=== PATIENT | male | born 1955 | race Caucasian/White ===

== ENCOUNTER 2016-11-18 20:31 | Emergency (ER) | payer MEDICARE, OTHER ==
[~2016-11-18 20:31] MED LIST: *UNABLE1; *UNABLE3; AMB10 PO; AMIT25 PO; ATV1 PO; B COMPLEX-C PO; C5 PO; CALTRA600D PO; CALTRAT600 PO; CEFT5 PO; CENTRUM PO; CENTRUM TAB1 TAB PO; CITRUCELSF; CLARIT10 PO; COMBIVENT INH; COMBIVENT RESPIM4 GM INH; COUMADIN7.5 MG PO; D100 PO; DIAZEPAM PO; DUONEB INH; ENDOCET1 TA3 PO; FERROUS SULF325 M1 PO; FIBER PO; FISH OIL PO; FISH-EPA1000 MG PO; FLEX PO; FLORASTOR250 MG PO; FLUCON2 PO; FORTICAL200 MG/ACT NAS; FOSAMAX70 MG PO; GABAPENTIN PO; HABIT14 TOP; HAIR,SKIN,NAILS VIT PO; IRON OTC PO; IRON325 MG PO; KEPPRA PO; KEPPRA XR PO; KEPPRA1000 MG PO; KEPPRA500 PO; KEPPRA750 MG PO; KLONO1 PO; KLONO5 PO; LEVAQUIN750 MG PO; LORTAB10 PO; MIACALCIN NAS; MOBIC7.5 PO; MODAFINIL PO; MULTIVIT/MIN PO; NASONEX NAS; NEBULIZER SOLN INH; NEO-OINT15 TOP; NEUR100 PO; NEUR300 PO; NEUR400 PO; NEUR600 PO; NEXIUM40 PO; NORCO1 TAB PO; NUIRONCAP PO; OXYCON20 PO; OXYCON40 PO; OXYCONTIN PO; OXYCONTIN60 MG PO; P20 PO; PCET PO; PERCOCET PO; PERCOCET1 TA4 PO; PHENYTEK200 MG PO; POTASSIUM OTC PO; POTASSIUM PO; PR25 PO; PRIN10 PO; PROAIR HFA INH; PROMETHAZINE PO; PROTONIX PO; PROVENTSOL INH; PROVIGIL PO; PROVIGIL2 PO; REFRESH OPH; ROXICODONE15 MG PO; SUPER B COMP PO; T PO; TEARS NATURA OPH; V5 PO; VALIUM10 MG PO; VITAMIN B COMP1 EAC1 PO; VITAMIN B-12 PO; VITAMIN B-121000 MC1 SL; VITAMIN D PO; VITAMIN D31000 UNIT PO; VITAMIN E PO; VITAMIN E400 UNI5 PO; WELLSR150 PO; ZYP5 PO; [UNRECOGNIZED DRUG - OTHER]
[2016-11-18 20:39] LABS: BASOPHILS 0.4 %; BASOPHILS ABSOLUTE 0.04 10/3/uL (0.0-0.16); EOSINOPHILS 3.1 %; EOSINOPHILS ABSOLUTE 0.29 10/3/uL (0.0-0.53); ER CBC TAT 0 Hrs 10 Mins; HEMATOCRIT 33.4 % (40.0-51.0); HEMOGLOBIN 10.6 g/dL (13.6-17.8); IMMATURE GRANULOCYTES 1.3 %; IMMATURE GRANULOCYTES ABSOLUTE 0.12 10/3/uL (0.0-0.11); LYMPHOCYTES 23.4 %; LYMPHOCYTES ABSOLUTE 2.21 10/3/uL (0.67-4.30); MEAN CORPUS HGB CONC 31.7 g/dL (32.0-36.0); MEAN CORPUSCULAR HEMOGLOB 27.2 pg (26.0-34.0); MEAN CORPUSCULAR VOLUME 85.6 fL (80-100); MEAN PLATELET VOLUME 10.5 fL (9.2-13.0); MONOCYTES 9.4 %; MONOCYTES ABSOLUTE 0.89 10/3/uL (0.21-1.20); NEUTROPHILS 62.4 %; NEUTROPHILS ABSOLUTE 5.89 10/3/uL (2.02-8.40); PLATELET COUNT 223 10/3/uL (150-400); WHITE BLOOD CELLS 9.4 10/3/uL (4.5-10.5)
[2016-11-18 20:40] LABS: MANUAL DIFF NO %
[2016-11-18 21:09] LABS: PLATELET ESTIMATE ADQ (ADEQUATE); RBC MORPHOLOGY NORM (NORMAL)
[2016-11-18 21:43] LABS: A/G RATIO 0.8 (0.7-1.9); ALBUMIN 3.1 G/DL (3.5-5.0); ALKALINE PHOSPHATASE 95 U/L (45-117); BUN (BLOOD UREA NITROGEN) 13 MG/DL (6-23); CALCIUM, SERUM 7.9 MG/DL (8.5-10.4); CHLORIDE, SERUM 106 MMOL/L (96-112); CO2 (CARBON DIOXIDE) 28 MMOL/L (24-34); CPK 134 U/L (0-200); CREATININE 0.72 MG/DL (0.70-1.30); GFR AFRICAN AMERICAN 115 ML/MIN (>=60); GFR NON AFRICAN AMERICAN 99 ML/MIN (>=60); GLOBULIN 4.1 G/DL (2.5-4.1); GLUCOSE, SERUM 126 MG/DL (60-99); POTASSIUM, SERUM 3.8 MMOL/L (3.5-5.3); SGPT(ALT) 19 U/L (5-65); SODIUM, SERUM 143 MMOL/L (135-148); TOTAL BILIRUBIN 0.2 MG/DL (0-1.2); TOTAL PROTEIN 7.2 G/DL (6.0-8.5)
[2016-11-18 21:44] LABS: SGOT(AST) 19 U/L (5-40)
== END 2016-11-18 23:51 | disposition home or self-care (01) ==
LOC: ER 20:31
PROVIDERS: Emergency Medicine
DX: R25.2 Cramp and spasm (principal); Z87.01 Personal history of pneumonia (recurrent); J44.9 Chronic obstructive pulmonary disease, unspecified
CPT/HCPCS: 80053; 82550; 83735; 85025; 96374; 96375; 99284; J1170; J2405; J3360

== ENCOUNTER 2016-12-16 20:31 | Emergency (ER) | payer MEDICARE, OTHER ==
[2016-12-16 20:52] LABS: ASCORBIC ACID (UR NOT ORDER) NEG (NEG); BILIRUBIN, URINE NEGATIVE (NEG); ER URINALYSIS TAT 0 Hrs 11 Mins; KETONE, URINE NEGATIVE (NEG); LEUKOCYTE ESTERASE(NOT OR NEG (NEG); NITRITE (URINE) NEG (NEG); WBC (NOT ORDERED) (RFLEX) < 1 (0-5)
== END 2016-12-16 22:30 | disposition home or self-care (01) ==
LOC: ER 20:31
PROVIDERS: Nurse Practitioner Acute Care
DX: M25.511 Pain in right shoulder (principal); M25.551 Pain in right hip; J44.9 Chronic obstructive pulmonary disease, unspecified; I10 Essential (primary) hypertension; D64.9 Anemia, unspecified; Z87.01 Personal history of pneumonia (recurrent); Z87.891 Personal history of nicotine dependence; Z86.718 Personal history of other venous thrombosis and embolism; Z88.1 Allergy status to other antibiotic agents; Z88.0 Allergy status to penicillin; Z88.6 Allergy status to analgesic agent; Z88.7 Allergy status to serum and vaccine; Z88.8 Allergy status to other drugs, medicaments and biological substances; Z91.040 Latex allergy status; Z79.899 Other long term (current) drug therapy
CPT/HCPCS: 70450; 72125; 73030-RT; 73502-RT; 81001; 93005; 99285; A9270-GY

== ENCOUNTER 2017-04-16 10:31 | Inpatient (IN) | payer MEDICARE, OTHER ==
[~2017-04-16] VITALS: Ht 175.3 cm; Wt 93.6 kg
[2017-04-16 11:20] LABS: BASOPHILS 0.1 %; BASOPHILS ABSOLUTE 0.02 10/3/uL (0.0-0.16); EOSINOPHILS 1.2 %; EOSINOPHILS ABSOLUTE 0.23 10/3/uL (0.0-0.53); IMMATURE GRANULOCYTES 0.8 %; IMMATURE GRANULOCYTES ABSOLUTE 0.15 10/3/uL (0.0-0.11); LYMPHOCYTES 9.4 %; LYMPHOCYTES ABSOLUTE 1.83 10/3/uL (0.67-4.30); MEAN CORPUS HGB CONC 31.5 g/dL (32.0-36.0); MEAN CORPUSCULAR HEMOGLOB 26.8 pg (26.0-34.0); MEAN PLATELET VOLUME 9.5 fL (9.2-13.0); MONOCYTES 11.2 %; MONOCYTES ABSOLUTE 2.18 10/3/uL (0.21-1.20); NEUTROPHILS 77.3 %; NEUTROPHILS ABSOLUTE 15.03 10/3/uL (2.02-8.40); PLATELET COUNT 184 10/3/uL (150-400); RBC DISTRIBUTION WIDTH 17.8 % (12.0-16.0)
[2017-04-16 11:24] LABS: ER CBC TAT 0 Hrs 10 Mins; HEMATOCRIT 26.7 % (40.0-51.0); HEMOGLOBIN 8.4 g/dL (13.6-17.8); MANUAL DIFF NO %; RED CELL COUNT 3.14 10/6/uL (4.7-6.1); WHITE BLOOD CELLS 19.4 10/3/uL (4.5-10.5)
[2017-04-16 11:26] LABS: INTERNATIONAL NORMAL RATI 1.3 UNITS (-); PROTIME (NOT ORD) 15.9 SEC (12.0-14.5)
[2017-04-16 11:43] LABS: ALBUMIN 2.9 G/DL (3.5-5.0); ALKALINE PHOSPHATASE 77 U/L (45-117); CALCIUM, SERUM 8.7 MG/DL (8.5-10.4); CO2 (CARBON DIOXIDE) 25 MMOL/L (24-34); POTASSIUM, SERUM 4.4 MMOL/L (3.5-5.3); SGOT(AST) 27 U/L (5-40); SGPT(ALT) 19 U/L (5-65); TOTAL BILIRUBIN 0.4 MG/DL (0-1.2); TOTAL PROTEIN 7.5 G/DL (6.0-8.5)
[2017-04-16 11:45] LABS: A/G RATIO 0.6 (0.7-1.9); BUN (BLOOD UREA NITROGEN) 42 MG/DL (6-23); CHLORIDE, SERUM 97 MMOL/L (96-112); CREATININE 1.89 MG/DL (0.70-1.30); GFR AFRICAN AMERICAN 43 ML/MIN (>=60); GFR NON AFRICAN AMERICAN 37 ML/MIN (>=60); GLOBULIN 4.6 G/DL (2.5-4.1); GLUCOSE, SERUM 123 MG/DL (60-99); SODIUM, SERUM 131 MMOL/L (135-148)
[2017-04-16 11:47] LABS: TROPONIN I 0.05 NG/ML (<0.05)
[2017-04-16 11:53] LABS: ASCORBIC ACID (UR NOT ORDER) NEG (NEG); BILIRUBIN, URINE NEGATIVE (NEG); ER URINALYSIS TAT 0 Hrs 10 Mins; KETONE, URINE NEGATIVE (NEG); LEUKOCYTE ESTERASE(NOT OR NEG (NEG); NITRITE (URINE) NEG (NEG); WBC (NOT ORDERED) (RFLEX) 1 (0-5)
[2017-04-16] MEDS ORDERED: IVIGLIQ IV (11:56)
[2017-04-16] MEDS ORDERED: NEUR600 PO (11:57)
[2017-04-16] MEDS ORDERED: V5 PO (11:57)
[2017-04-16] MEDS ORDERED: WELLSR150 PO (11:57)
[2017-04-16] MEDS ORDERED: NORCO1 TAB PO (11:58)
[2017-04-16] MEDS ORDERED: ZYP5 PO (11:58)
[2017-04-16] MEDS ORDERED: KEPPRA500 PO (11:58)
[2017-04-16] MEDS ORDERED: REST15 PO (11:59)
[2017-04-16] MEDS ORDERED: PROTONIX PO (11:59)
[2017-04-16] MEDS ORDERED: ZOFRAN4 PO (11:59)
[2017-04-16] MEDS ORDERED: COMBIVENT RESPIM4 GM INH (12:00)
[2017-04-16] MEDS ORDERED: ALBUTEROL0.083 % INH (12:00)
[2017-04-16] MEDS ORDERED: VITE PO (12:00)
[2017-04-16] MEDS ORDERED: VITAMIN D1000 UNI1 PO (12:00)
[2017-04-16] MEDS ORDERED: FLONASE NAS (12:01)
[2017-04-16 16:26] LABS: LACTATE 1.2 MMOL/L (0.3-2.4)
[2017-04-18 07:19] LABS: BASOPHILS 0.1 %; BASOPHILS ABSOLUTE 0.02 10/3/uL (0.0-0.16); EOSINOPHILS 3.5 %; EOSINOPHILS ABSOLUTE 0.54 10/3/uL (0.0-0.53); HEMATOCRIT 27.4 % (40.0-51.0); HEMOGLOBIN 8.6 g/dL (13.6-17.8); IMMATURE GRANULOCYTES 1.7 %; IMMATURE GRANULOCYTES ABSOLUTE 0.26 10/3/uL (0.0-0.11); LYMPHOCYTES 10.8 %; LYMPHOCYTES ABSOLUTE 1.66 10/3/uL (0.67-4.30); MEAN CORPUS HGB CONC 31.4 g/dL (32.0-36.0); MEAN CORPUSCULAR HEMOGLOB 26.7 pg (26.0-34.0); MEAN CORPUSCULAR VOLUME 85.1 fL (80-100); MONOCYTES 10.6 %; MONOCYTES ABSOLUTE 1.62 10/3/uL (0.21-1.20); NEUTROPHILS 73.3 %; NEUTROPHILS ABSOLUTE 11.23 10/3/uL (2.02-8.40); PLATELET COUNT 203 10/3/uL (150-400); RBC DISTRIBUTION WIDTH 18.3 % (12.0-16.0); RED CELL COUNT 3.22 10/6/uL (4.7-6.1); WHITE BLOOD CELLS 15.3 10/3/uL (4.5-10.5)
[2017-04-18 07:21] LABS: MANUAL DIFF NO %
[2017-04-18 07:29] LABS: BUN (BLOOD UREA NITROGEN) 9 MG/DL (6-23); CALCIUM, SERUM 8.6 MG/DL (8.5-10.4); CHLORIDE, SERUM 101 MMOL/L (96-112); CO2 (CARBON DIOXIDE) 27 MMOL/L (24-34); CREATININE 0.65 MG/DL (0.70-1.30); GFR AFRICAN AMERICAN 120 ML/MIN (>=60); GFR NON AFRICAN AMERICAN 104 ML/MIN (>=60); GLUCOSE, SERUM 125 MG/DL (60-99); POTASSIUM, SERUM 3.8 MMOL/L (3.5-5.3); SODIUM, SERUM 135 MMOL/L (135-148)
[2017-04-19 06:59] LABS: BUN (BLOOD UREA NITROGEN) 8 MG/DL (6-23); CALCIUM, SERUM 8.8 MG/DL (8.5-10.4); CHLORIDE, SERUM 103 MMOL/L (96-112); CO2 (CARBON DIOXIDE) 28 MMOL/L (24-34); CREATININE 0.64 MG/DL (0.70-1.30); GFR AFRICAN AMERICAN 121 ML/MIN (>=60); GFR NON AFRICAN AMERICAN 104 ML/MIN (>=60); GLUCOSE, SERUM 110 MG/DL (60-99); POTASSIUM, SERUM 4.1 MMOL/L (3.5-5.3); SODIUM, SERUM 137 MMOL/L (135-148)
[2017-04-19 07:09] LABS: BASOPHILS 0.4 %; BASOPHILS ABSOLUTE 0.05 10/3/uL (0.0-0.16); EOSINOPHILS 5.7 %; EOSINOPHILS ABSOLUTE 0.73 10/3/uL (0.0-0.53); HEMATOCRIT 24.9 % (40.0-51.0); HEMOGLOBIN 7.6 g/dL (13.6-17.8); IMMATURE GRANULOCYTES 2.8 %; IMMATURE GRANULOCYTES ABSOLUTE 0.36 10/3/uL (0.0-0.11); LYMPHOCYTES 18.1 %; LYMPHOCYTES ABSOLUTE 2.32 10/3/uL (0.67-4.30); MEAN CORPUS HGB CONC 30.5 g/dL (32.0-36.0); MEAN CORPUSCULAR VOLUME 85.3 fL (80-100); MEAN PLATELET VOLUME 10.4 fL (9.2-13.0); MONOCYTES ABSOLUTE 1.41 10/3/uL (0.21-1.20); NEUTROPHILS ABSOLUTE 7.97 10/3/uL (2.02-8.40); PLATELET COUNT 217 10/3/uL (150-400); RBC DISTRIBUTION WIDTH 18.6 % (12.0-16.0); RED CELL COUNT 2.92 10/6/uL (4.7-6.1); WHITE BLOOD CELLS 12.8 10/3/uL (4.5-10.5)
[2017-04-19 07:11] LABS: MANUAL DIFF NO %
[2017-04-19 07:29] LABS: ANISOCYTOSIS 1+ (5-10/OIF) (0-5/OIF); PLATELET ESTIMATE ADQ (ADEQUATE)
[2017-04-19 07:30] LABS: POLYCHROMASIA 1+ (2-5/OIF) (0-1/OIF)
[2017-04-19] MEDS ORDERED: LEVAQUIN750 MG PO (14:49)
== END 2017-04-19 15:16 | disposition home health service (06) | DRG 194 ==
LOC: ENRESERV → ENRESERVTM → ENRESERVDT → CANRESERV → ER 10:31 → 5SO 13:42 → IMCU 13:42 → 5SO 04-17 21:16
PROVIDERS: Internal Medicine Geriatric Medicine; Student in an Organized Health Care Education/Training Program
DX: J18.9 Pneumonia, unspecified organism (principal); I69.351 Hemiplegia and hemiparesis following cerebral infarction affecting right dominant side; G61.0 Guillain-Barre syndrome; F11.20 Opioid dependence, uncomplicated; F13.20 Sedative, hypnotic or anxiolytic dependence, uncomplicated; J44.9 Chronic obstructive pulmonary disease, unspecified; M21.371 Foot drop, right foot; K21.9 Gastro-esophageal reflux disease without esophagitis; G89.29 Other chronic pain; I10 Essential (primary) hypertension; F41.9 Anxiety disorder, unspecified; Z79.899 Other long term (current) drug therapy; Z90.49 Acquired absence of other specified parts of digestive tract; Z98.890 Other specified postprocedural states; Z80.8 Family history of malignant neoplasm of other organs or systems; Z82.49 Family history of ischemic heart disease and other diseases of the circulatory system; Z80.1 Family history of malignant neoplasm of trachea, bronchus and lung; Z80.42 Family history of malignant neoplasm of prostate; Z80.0 Family history of malignant neoplasm of digestive organs; Z88.6 Allergy status to analgesic agent; Z91.040 Latex allergy status; Z88.0 Allergy status to penicillin; Z88.1 Allergy status to other antibiotic agents
CPT/HCPCS: 70450; 71010; 72125; 80048; 80053; 81001; 82962; 83605; 83880; 84443; 84484; 85025; 85610; 87389; 87641; 93005; 94640; 97116-GP; 97162-GP; 99291; A9270-GY; G8978-CK-GP; G8979-CJ-GP; J0456; J1956